=== PATIENT | male | born 1950 | race Caucasian/White ===

== ENCOUNTER 2019-06-05 05:34 | Emergency (ER) | payer OTHER ==
[~2019-06-05] VITALS: Ht 188 cm; Wt 113.4 kg
[2019-06-05] MEDS ORDERED: LISINOPRIL10 MG PO (05:51)
[2019-06-05] MEDS ORDERED: CENTRUM ADULTS1 EACH PO (05:51)
[2019-06-05] MEDS ORDERED: VITAMIN C500 M4 PO (05:51)
[2019-06-05] MEDS ORDERED: OMEPRAZOLE20 M1 PO (05:52)
[2019-06-05] MEDS ORDERED: ASPIRIN81 MG PO (05:52)
[2019-06-05] MEDS ORDERED: IBUPROFEN200 M1 PO (05:53)
[2019-06-05] MEDS ORDERED: TYLENOL325 MG PO (05:54)
--- NOTE | 2019-06-05 20:20 | EKG ---
[facility] [address] [facility] [address] [address] [place] [address] Signed Sinus bradycardia with 1st degree AV block Otherwise normal ECG No previous ECGs available Confirmed by RENUKA MUSA MD ([id number] on 06/05/2019 8:20:03 PM Electronically Signed By: RENUKA MUSA MD 06/05/19 2020 PATIENT NAME: MANUEL CHAMBERS Electrocardiogram DATE OF : 54 PHYSICIAN: RENUKA MUSA MD REPORT #: [id number] REPORT IS CONFIDENTIAL AND NOT TO BE RELEASED WITHOUT AUTHORIZATION
== END 2019-06-05 08:15 | disposition home or self-care (01) ==
LOC: ED 05:34
DX: H53.8 Other visual disturbances (principal); I10 Essential (primary) hypertension; Z87.891 Personal history of nicotine dependence; Z88.0 Allergy status to penicillin; Z79.899 Other long term (current) drug therapy; Z79.82 Long term (current) use of aspirin
CPT/HCPCS: 70450; 80053; 83735; 84484; 85025; 93005; 93010; 99284-25